=== PATIENT | female | born 1980 | race Caucasian/White ===

== ENCOUNTER 2017-02-03 12:33 | Day surgery (SDC) | payer MEDICAID ==
[2017-01-28 10:38] LABS: HEMATOCRIT 37.6 % (36.0-47.0); HEMOGLOBIN 12.2 g/dL (12.0-15.5); MEAN CORPUSCULAR HEMOGLOBIN 29.8 pg (27.0-33.4); MEAN CORPUSCULAR HGB CONC 32.3 g/dL (32.0-36.0); MEAN CORPUSCULAR VOLUME 92 fl (80-97); RED BLOOD COUNT 4.08 10^6/uL (3.72-5.28); RED CELL DISTRIBUTION WIDTH 16.7 % (11.5-14.0); WHITE BLOOD COUNT 7.6 10^3/uL (4.0-10.5)
[2017-01-28 11:05] LABS: ANION GAP 7 (5-19); BLOOD UREA NITROGEN 10 mg/dL (7-20); CALCIUM 9.8 mg/dL (8.4-10.2); CARBON DIOXIDE 28 mmol/L (22-30); CHLORIDE 103 mmol/L (98-107); GLUCOSE 92 mg/dL (75-110); POTASSIUM 4.5 mmol/L (3.6-5.0); SODIUM 137.5 mmol/L (137-145)
--- NOTE | 2017-01-28 11:25 | RADIOLOGY REPORT (SQ) ---
EXAM DESCRIPTION: CHEST PA/LATERAL COMPLETED DATE/TIME: 01/28/2017 11:17 am REASON FOR STUDY: PRE OP COMPARISON: None. EXAM PARAMETERS: NUMBER OF VIEWS: two views TECHNIQUE: Digital Frontal and Lateral radiographic views of the chest acquired. RADIATION DOSE: NA LIMITATIONS: none FINDINGS: LUNGS AND PLEURA: No opacities, masses or pneumothorax. No pleural effusion. MEDIASTINUM AND HILAR STRUCTURES: No masses or contour abnormalities. HEART AND VASCULAR STRUCTURES: Heart normal size. No evidence for failure. BONES: No acute findings. HARDWARE: None in the chest. OTHER: No other significant finding. IMPRESSION: NO SIGNIFICANT RADIOGRAPHIC FINDING IN THE CHEST. TECHNICAL DOCUMENTATION: JOB ID: [id number] [employer]- All Rights Reserved
[~2017-02-03 12:33] MED LIST: ACETAMINOPHEN 325 MG TABLET PO PRN; CEFAZOLIN 1 GM/D5W RTU 1 GM/50 ML RTUPB IV PRN; LACTATED RINGERS 1000 ML IV PRN; LIDOCAINE 0.5% INJ-PF (5 MG/ML) 50 ML SDV SUBCUT PRN; ROCURONIUM BROMIDE INJ 50 MG/5 ML VIAL IV ONE; SUCCINYLCHOLINE CHLORIDE INJ 200 MG/10 ML VIAL ONE
[2017-02-03] MEDS ORDERED: BUPIVACAINE HCL 0.25 % INJ/PF (2.5 MG/1 ML) 30 ML VIAL ONE (13:40)
[2017-02-03] MEDS ORDERED: FENTANYL CITRATE INJ/PF 100 MCG/2 ML AMPUL ONE (17:04)
[2017-02-03] MEDS ORDERED: MIDAZOLAM 2 MG/2 ML INJ ONE (17:05)
[2017-02-03] MEDS ORDERED: HYDROMORPHONE HCL INJ/PF 2 MG/ML AMPULE ONE (17:05)
[2017-02-03] MEDS ORDERED: PROPOFOL INJ 200 MG/20 ML VIAL IV ONE (17:05)
[2017-02-03] MEDS ORDERED: ACETAMINOPHEN 100 ML IV ONE (17:05)
[2017-02-03] MEDS ORDERED: DEXAMETHASONE SOD PHOSPHATE INJ 4 MG/1 ML VIAL ONE (17:06)
[2017-02-03] MEDS ORDERED: ONDANSETRON HCL INJ/PF 4 MG/2 ML SDV ONE (17:06)
[2017-02-03] MEDS ORDERED: MORPHINE SULFATE 10 MG/ML INJ IV PRN ×2 (17:45→18:50)
[2017-02-03] MEDS ORDERED: MEPERIDINE HCL/PF INJ 25 MG/1 ML DISP.SYRIN IV PRN (17:45)
[2017-02-03] MEDS ORDERED: FENTANYL CITRATE INJ/PF 100 MCG/2 ML AMPUL IV PRN ×3 (17:45)
[2017-02-03] MEDS ORDERED: PROMETHAZINE HCL INJ 25 MG/1 ML VIAL IV PRN (17:45)
[2017-02-03] MEDS ORDERED: DIPHENHYDRAMINE HCL 50 MG/ML VIAL IV PRN (17:45)
[2017-02-03] MEDS: FENTANYL CITRATE INJ/PF 100 MCG/2 ML AMPUL ONE ×2 (18:45→19:00)
--- NOTE | 2017-02-03 18:49 | PDOC DISCHARGE SUMMARY ---
Discharge Summary (SDC) - Discharge Final Diagnosis: Diastases recti. Right ovarian mass. Date of Surgery: 02/03/17 Discharge Date: 02/03/17 Condition: Good Treatment or Instructions: Exploratory laparoscopy. Abdominal wall exploration. May discharge patient home when met discharge criteria. Follow-up with me in 2-3 weeks. Stay active but avoid strenuous activity. May shower in 2 days. Please arrange follow-up with Dr. Whittaker (gynecology) in 1-3 weeks. Prescriptions: Oxycodone HCl/Acetaminophen [Percocet 5-325 mg Tablet] 1 tab PO ASDIR PRN #25 tab PRN Reason: For Pain Scale 3-5 Referrals: JANETH SZYMANSKI MD [Primary Care Provider] - Discharge Diet: As Tolerated Discharge Activity: Activity As Tolerated - Stay active but avoid strenuous activity. Report the Following to Your Physician Immediately: Fever over 101 Degrees, Unusual Bleeding, Redness, Drainage-Foul Smelling
[2017-02-03] MEDS ORDERED: OXYCODONE-ACETAMINOPHEN 5-325 MG TABLET PO PRN (18:50)
[2017-02-03] MEDS ORDERED: RINGERS SOLUTION,LACTATED 1,000 ML IV PRN (18:50)
[2017-02-03] MEDS ORDERED: ONDANSETRON HCL INJ/PF 4 MG/2 ML SDV IV PRN (18:50)
--- NOTE | 2017-02-03 18:50 | Operative Report ---
Operative Report DATE OF SURGERY: 02/03/17 PREOPERATIVE DIAGNOSIS: Ventral hernia POSTOPERATIVE DIAGNOSIS: Right ovarian mass, diastases recti OPERATION: Abdominal wall exploration, exploratory laparoscopy. SURGEON: SHWETHA WILED ANESTHESIA: GA TISSUE REMOVED OR ALTERED: None COMPLICATIONS: None ESTIMATED BLOOD LOSS: Minimal INTRAOPERATIVE FINDINGS: Normal feeling and appearing abdominal wall other than laxity. No evidence of abdominal wall hernia. Normal-appearing liver and gallbladder and anterior surface of the stomach. Normal-appearing appendix and right colon and sigmoid colon. Normal-appearing small bowel. Enlarged uterus with evidence of uterine fibroids. Normal-appearing left ovary. Right ovary with 2 cm slightly fatty appearing cuboid mass. PROCEDURE: Informed consent was obtained. Patient was brought to the operating room placed on the operating table in supine position. After satisfactory induction of general anesthesia patient's abdomen was prepped and draped in usual sterile fashion. Prior to arrival in the operating room I had her point to the exact location where she notices the bulge and pain. The location was about 4 cm above the umbilicus at the midline. A transverse incision was made overlying this area. Dissection was carried down. The subcutaneous tissue was explored for masses and hernia sacs and none were found. Fascial incision was made and the peritoneal cavity was entered. Danielle trocar was inserted and pneumoperitoneum produced with good patient toleration. A 5 mm trocar was placed in the left lateral mid abdomen. Exploratory laparoscopy was performed. The anterior abdominal wall was clearly visualized. No abnormalities were seen. No hernias were seen. Of note prior to insertion of the Danielle trocar I inserted my finger and digitally palpated the abdominal wall all around this area. Other than laxity consistent with diastasis recti, no hernias were palpable. The liver appeared normal as did the gallbladder. The anterior surface of the stomach appeared normal. The right colon appeared normal as is the sigmoid colon. The appendix was visualized and it appeared normal. Limited view of the small bowel demonstrated no apparent abnormalities. No obvious omental abnormalities were seen. The uterus appeared mildly enlarged with evidence of underlying fibroids. The left ovary appeared normal. The right ovary had a cuboid 2 cm solid mass that had a slightly fatty appearance to it. I obtained intraoperative consultation with gynecology. Dr. Whittaker came in to the room and saw the right ovarian abnormality. After discussion we decided to have the patient see her as an outpatient to discuss further measures for this right ovarian mass. Our intra-Op assessment was that of a benign tumor. Trochars were removed. The Danielle trocar site fascial defect was closed with interrupted Ethibond sutures. All skin incisions were closed with subcuticular Monocryl sutures. Marcaine was injected at the incision sites. Patient tolerated procedure well with no apparent complications and was taken to the recovery area in stable condition.
[2017-02-03 23:24] VITALS: BP 116/77
== END 2017-02-03 22:00 | disposition home or self-care (01) ==
LOC: OROUT 12:33 → 4S 20:05 → OROUT 22:00
PROVIDERS: ATTEND Surgery
PROC: 0WJJ4ZZ Inspection of Pelvic Cavity, Percutaneous Endoscopic Approach (ICD-10-PCS; principal; 2017-02-03 14:30)
DX: R19.09 Other intra-abdominal and pelvic swelling, mass and lump (principal); N85.2 Hypertrophy of uterus; E03.9 Hypothyroidism, unspecified; F17.210 Nicotine dependence, cigarettes, uncomplicated; Z79.899 Other long term (current) drug therapy; Q79.59 Other congenital malformations of abdominal wall
CPT/HCPCS: 36415; 85027; 81025; 80048; 71020; 49320; J2250; J0690; J3490; J1100; J3010; J1170; J0330; J2405; S0020; J2704; J0131; 790

== ENCOUNTER → 2017-02-23 | Outpatient (CLI) | payer MEDICAID ==
--- NOTE | 2017-02-23 10:49 | RADIOLOGY REPORT (SQ) ---
EXAM DESCRIPTION: CT ABDOMEN ORAL CONTRAST ONLY COMPLETED DATE/TIME: 02/23/2017 9:58 am REASON FOR STUDY: VENTRAL HERNIA W/O OBSTRUCTION OR GANGRENE K43.9 VENTRAL HERNIA WITHOUT OBSTRUCTI ON OR GANGRENE K59.00 CONSTIPATION, UNSPECIFIED Z98.890 OTHER SPECIFIED POSTPROCEDURAL STATES COMPARISON: 10/11/2012 TECHNIQUE: CT scan of the abdomen performed without intravenous contrast and with oral contrast. Im ages reviewed with lung, soft tissue, and bone windows. Reconstructed coronal and sagittal MPR image s reviewed. All images stored on PACS. All CT scanners at this facility use dose modulation, iterative reconstruction, and/or weight based d osing when appropriate to reduce radiation dose to as low as reasonably achievable (ALARA). [facility]: Dose Right [facility]: CareDose [facility]: Dose Right [facility]: Teradose 4D [facility]: Smart KILTR RADIATION DOSE: Up-to-date CT equipment and radiation dose reduction techniques were employed. CTDIv ol: 14.0 mGy. DLP: 545 mGy-cm.mGy. LIMITATIONS: None. FINDINGS: LOWER CHEST: No significant findings. No nodules or infiltrates. NONCONTRASTED LIVER, SPLEEN, ADRENALS: Evaluation limited by lack of IV contrast. No identified sign ificant masses. PANCREAS: No masses. No peripancreatic inflammatory changes. GALLBLADDER: No identified stones by CT criteria. No inflammatory changes to suggest cholecystitis. RIGHT KIDNEY AND URETER: No suspicious masses. Assessment limited by lack of IV contrast. No signif icant calcifications. No hydronephrosis or hydroureter. LEFT KIDNEY AND URETER: No suspicious masses. Assessment limited by lack of IV contrast. No signifi cant calcifications. No hydronephrosis or hydroureter. AORTA AND RETROPERITONEUM: No aneurysm. No retroperitoneal masses or adenopathy. BOWEL AND PERITONEAL CAVITY: No obvious masses or inflammatory changes. No free fluid. APPENDIX: Not visualized. ABDOMINAL WALL: There is an umbilical hernia containing omental fat. There is a midline subcutaneous fluid collection. This measures 7.1 x 5.3 cm in greatest diameter. Hounsfield units measures 3.3. BONES: No significant findings. OTHER: No other significant finding. IMPRESSION: Large subcutaneous fluid collection measured at 7.1 x 5.3 cm. No other significant fin dings. TECHNICAL DOCUMENTATION: JOB ID: [id number] Quality ID # [id number]: Final reports with documentation of one or more dose reduction techniques (e.g., Au tomated exposure control, adjustment of the mA and/or kV according to patient size, use of iterative reconstruction technique) 2010 [employer]- All Rights Reserved
== END ==
LOC: RAD 09:39
PROVIDERS: ATTEND Physician Assistant Surgical
DX: K43.9 Ventral hernia without obstruction or gangrene (principal); K59.00 Constipation, unspecified; Z98.890 Other specified postprocedural states
CPT/HCPCS: 74150